=== PATIENT | female | born 2000 | race American Indian/Alaskan Native ===

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

== ENCOUNTER 2021-05-29 23:38 | Emergency (ER) | payer MEDICAID | END 2021-05-30 | disposition left against medical advice (07) | LOC: DL.ED 23:38 | DX: Z53.21 Procedure and treatment not carried out due to patient leaving prior to being seen by health care provider (principal) ==

== ENCOUNTER → 2021-05-31 | Day surgery (SDC) | payer MEDICAID ==
[~2021-05-31] MED LIST: Dexamethasone 4 MG/ML SDV IV ONE; Ferric Subsulfate Topical Soln 8 GM (8 ML) Bottle ONE; Ketorolac 30 MG/ML SDV IVPUSH ONE; Lactated Ringers 1,000 ML IV SCH; Lidocaine 0.5% with EPINEPHrine 1:200,000 50 ML MDV ONE; Midazolam 1 MG/ML 2 ML SDV IV ONE; Ondansetron 4 MG/2 ML SDV IV ONE; Ondansetron 4 MG/2 ML SDV IVPUSH PRN; Oxytocin/Normal Saline 30 UNIT/500 ML BAG ONE; Propofol 200 MG/20 ML SDV IV ONE; Sodium Chloride 0.9% 10 ML Syringe FLUSH PRN; fentaNYL 100 MCG/2 ML SDV IV ONE
[2021-05-31] MEDS: Lactated Ringers 1,000 ML IV SCH (11:00)
[2021-05-31] MEDS: Doxycycline 100 MG in Sodium Chloride 0.9% 100 ML IV ONE (11:19)
[2021-05-31] MEDS: Lidocaine 0.5% with EPINEPHrine 1:200,000 50 ML MDV INJECT ONE (12:24)
[2021-05-31] MEDS: Oxytocin/Normal Saline 30 UNIT/500 ML BAG IV SCH (12:45)
[2021-05-31] MEDS: Ferric Subsulfate Topical Soln 8 GM (8 ML) Bottle TOP ONE (12:46)
[2021-05-31 15:36] VITALS: BP 127/68; PULSE 79
--- NOTE | 2021-06-01 11:20 | OR ---
DATE: 05/31/2021 PROCEDURE PERFORMED: Suction dilatation and curettage. INDICATION FOR PROCEDURE: Missed with retained products of conception. ANESTHESIA: MAC with local. BRIEF HISTORY: 20-year-old 3, now para 1-0-2-1 with an ultrasound showing pole and sac consistent with a 10-week 3-day gestation. The patient should be almost 14 weeks today. She had some active bleeding over the weekend with mild cramping, presented to the ER, but due to the long wait decided to go home and managed well during that time. In the office, we had discussed options for expectant management or surgical management and she elected surgical for her own peace of mind to be able to move on. Also, feeling that heavy bleeding and cramping at home would not be well tolerated and she was fearful of that. Reports that she was in her usual state at this time, feeling mildly nauseous and naturally sad and depressed about the miscarriage. Otherwise, no concerns. CONSENT: Discussed the indication for removal of contents from the uterus for emotional closure and to decrease risk of infection and bleeding. Discussed risk of bleeding, however, is still present and it could require blood transfusion, risk of potential perioperative or postoperative infection, risk of injury to internal organs and adjacent structures including, but not limited to, bladder; uterus; intestines; vagina; cervix; and how those would be managed. Her questions were answered and she agreed to proceed. Appropriate consent forms were signed and in the chart. DETAILS: The patient brought to the operating room and she already had her first dose of doxycycline IV administered and she was provided with MAC anesthesia and placed in dorsal lithotomy position. Vagina was prepped and straight cath performed with return of 100 mL of clear fluid. Bimanual exam was consistent with a 10-week size uterus and slightly anteverted. Sterile speculum placed. 1 mL of 0.5% lidocaine with epinephrine was used in the anterior lip with placement of single-tooth tenaculum. Then, an additional 3 mL each was placed at the 4 and 8 o'clock positions for paracervical block. Appropriate wheal was created. Uterus was then sounded to 10.5 cm, and Hegar dilators used up to size 20 without difficulty. Attempted to pass a size 10 suction catheter and had some resistance. Therefore, size 8 suction catheter was used with standard technique, rotating and sweeping, scraping along the montaño of the uterus. Contents of the uterus aspirated without incident using ring forceps as necessary for larger tissue portions. Uterus was then cleared with sharp curette and uterine cry was felt in all 4 quadrants. Final pass of suction catheter was made and bedside ultrasound performed by myself with good image quality showing an empty uterus. Bimanual exam revealed the uterus to be back down to 6 week size and well contracted. Contents explored and consistent with retained products of conception including parts noted. ESTIMATED BLOOD LOSS: 100 mL. FINDINGS: Gross inspection of the products of conception with placental tissue, gestational sac, and parts. Pathology was not requested. Mother did want to take the contents home for burial. COMPLICATIONS: None. MEDICATIONS: The patient had IV Pitocin running when she was taken to the PACU. DISPOSITION: The patient taken to the PACU for further recovery and no family present at the immediate time postoperatively. However, a couple of hours later, family presented. I updated them as well as the patient on the success of the procedure and postoperative cares. [facility] /[id number]
== END | disposition home or self-care (01) ==
LOC: DL.SDS 10:24
PROVIDERS: ATTEND Family Medicine
DX: O02.89 Other abnormal products of conception (principal); Z01.812 Encounter for preprocedural laboratory examination; Z20.822 Contact with and (suspected) exposure to COVID-19
CPT/HCPCS: 59812; 87635; J1100; J1885; J2250; J2405; J2590; J2704; J3010; J3490; J7120; U0002

== ENCOUNTER 2021-09-18 15:08 | Emergency (ER) | payer MEDICAID ==
[2021-09-18] MEDS ORDERED: Ondansetron 4 MG Tab.DIS PO ONE (15:09)
[2021-09-18 15:39] VITALS: BP 118/74; PULSE 68
[2021-09-18 16:13] LABS: CORONAVIRUS COVID-19 NAA NEGATIVE (NEGATIVE)
[2021-09-18] MEDS ORDERED: Ondansetron 4 MG/2 ML SDV IVPUSH ONE (17:10)
[2021-09-18] MEDS ORDERED: Sodium Chloride 0.9% 1,000 ML IV ONE ×2 (17:10→17:42)
[2021-09-18 17:26] LABS: ANION GAP 17.6 mEq/L (7-13); CHLORIDE,CL 102 mmol/L (98-107); SODIUM,NA 139 mmol/L (136-145)
--- NOTE | 2021-09-18 17:46 | EDM.PDOC ---
Scribed by Mary Carmen Valenzuela 09/18/21 [id number] for Arsen Berry PA ED HPI GENERAL MEDICAL PROBLEM - General Chief Complaint: Abdominal Pain Stated Complaint: VOMITING EVERYTHING, NOT ATE IN 2 DAYS Time Seen by Provider: 09/18/21 17:06 Source of Information: Reports: Patient, RN, RN Notes Reviewed History Limitations: Reports: No Limitations - History of Present Illness INITIAL COMMENTS - FREE TEXT/NARRATIVE: Patient is a 21-year-old female who reports to ED due to vomiting x5 days. The patient reports she was seen in the [facility], but no treatments were done. T he patient reports she now also has a headache. The patient reports she has had loose bowel movements. Onset: Gradual Duration: Constant Location: Reports: Abdomen Quality: Reports: Ache Severity: Moderate Improves with: Reports: None Worsens with: Reports: None Associated Symptoms: Reports: No Other Symptoms Abdomen Pain Score (Numeric/FACES): 7 - Related Data Allergies Allergy/AdvReac Type Severity Reaction Status Date / Time No Known Allergies Allergy Verified 09/18/21 15:36 Home Meds: Home Meds Acetaminophen 500 mg PO ASDIRECTED PRN 05/28/21 [History] Albuterol [Proventil Neb Soln] 1 vial INH ASDIRECTED PRN 05/28/21 [History] Doxycycline Hyclate [Doxy 100] 100 mg IV BID #6 ml 06/01/21 [Rx] Ibuprofen 800 mg PO Q8H #30 tablet 06/01/21 [Rx] Past Medical History - Past Health History Medical/Surgical History: Denies Medical/Surgical History HEENT History: Reports: Impaired Vision, Other (See Below) Other HEENT History: WEARS CORRECTIVE LENS Cardiovascular History: Reports: None Respiratory History: Reports: None Gastrointestinal History: Reports: None Genitourinary History: Reports: STD DEPUTY ATTORNEY GENERAL History: Reports: , Spontaneous , Other (See Below) Other DEPUTY ATTORNEY GENERAL History: took a test this morning, positive, states did have a miscarriage, early on in 2017 Musculoskeletal History: Reports: Fracture Other Musculoskeletal History: HUMERAL FRACTURE Neurological History: Reports: None Psychiatric History: Reports: ADHD, Bipolar, PTSD Endocrine/Metabolic History: Reports: Obesity/BMI 30+ Hematologic History: Reports: Anemia Immunologic History: Reports: None Oncologic (Cancer) History: Reports: None Dermatologic History: Reports: None - Infectious Disease History Infectious Disease History: Reports: None - Past Surgical History Head Surgeries/Procedures: Reports: None HEENT Surgical History: Reports: Adenoidectomy, Tonsillectomy Cardiovascular Surgical History: Reports: None Respiratory Surgical History: Reports: None GI Surgical History: Reports: None Female Surgical History: Reports: None Endocrine Surgical History: Reports: None Neurological Surgical History: Reports: None Musculoskeletal Surgical History: Reports: None Oncologic Surgical History: Reports: None Dermatological Surgical History: Reports: None Social & Family History - Family History Family Medical History: No Pertinent Family History - Caffeine Use Caffeine Use: Reports: None Other Caffeine Use: COFFEE one cup - Recreational Drug Use Recreational Drug Use: No - Living Situation & Occupation Living situation: Reports: with Family Occupation: Student ED ROS GENERAL - Review of Systems Review Of Systems: Comprehensive ROS is negative, except as noted in HPI. ED EXAM, GI/ABD - Physical Exam Exam: See Below Exam Limited By: No Limitations General Appearance: Alert, WD/WN, No Apparent Distress Eyes: Bilateral: Normal Appearance Ears: Normal External Exam, Normal Canal, Hearing Grossly Normal, Normal TMs Nose: Normal Inspection, Normal Mucosa, No Blood Throat/Mouth: Normal Inspection, Normal Lips, Normal Teeth, Normal Gums, Normal Oropharynx, Normal Voice, No Airway Compromise Head: Atraumatic, Normocephalic Neck: Normal Inspection, Supple, Non-Tender, Full Range of Motion Respiratory/Chest: No Respiratory Distress, Lungs Clear, Normal Breath Sounds, No Accessory Muscle Use, Chest Non-Tender Cardiovascular: Normal Peripheral Pulses, Regular Rate, Rhythm, No Edema, No Gallop, No JVD, No Murmur, No Rub GI/Abdominal Exam: Other (diffuse tenderness) (Female) Exam: Deferred Rectal (Female) Exam: Deferred Back Exam: Normal Inspection, Full Range of Motion, NT Extremities: Normal Inspection, Normal Range of Motion, Non-Tender, Normal Capillary Refill, No Pedal Edema Neurological: Alert, Oriented, CN II-XII Intact, Normal Cognition, Normal Gait, Normal Reflexes, No Motor/Sensory Deficits Psychiatric: Normal Affect, Normal Mood Skin Exam: Warm, Dry, Intact, Normal Color, No Rash Lymphatic: No Adenopathy Course - Vital Signs Last Recorded V/S: Last Vital Signs Temp 98.3 F 09/18/21 15:37 Pulse 68 09/18/21 15:37 Resp 18 09/18/21 15:37 BP 118/74 09/18/21 15:37 Pulse Ox 98 09/18/21 15:37 - Orders/Labs/Meds Orders: Active Orders 24 hr Category Date Time Status CULTURE BLOOD [BC] Stat Lab 09/18/21 17:05 Ordered DRUG SCREEN URINE BIORAD [URCHEM] Stat Lab 09/18/21 17:05 Ordered HCG QUALITATIVE,URINE [URCHEM] Stat Lab 09/18/21 17:05 Ordered UA RFX JOSE AND CULT IF INDIC [URIN] Urgent Lab 09/18/21 17:05 Ordered Sodium Chloride 0.9% [Normal Saline] 1,000 ml Med 09/18/21 17:10 Ordered IV .BOLUS Sodium Chloride 0.9% [Normal Saline] 1,000 ml Med 09/18/21 17:42 Ordered IV .BOLUS Medication Orders Sodium Chloride (Normal Saline) 1,000 mls @ 999 mls/hr IV .BOLUS ONE Stop: 09/18/21 18:10 Last Admin: 09/18/21 17:15 Dose: 999 mls/hr Documented by: DANA Sodium Chloride (Normal Saline) 1,000 mls @ 999 mls/hr IV .BOLUS ONE Stop: 09/18/21 18:42 Labs: Laboratory Tests 09/18/21 09/18/21 09/18/21 Range/Units 15:24 17:00 17:00 WBC 9.3 (5.0-10.0) 10^3/uL RBC 5.63 H (4.2-5.4) 10^6/uL Hgb 15.8 D (12.0-16.0) g/dL Hct 46.7 (37.0-47.0) % MCV 82.9 (80-100) fL MCH 28.1 (27.0-34.0) pg MCHC 33.8 (33.0-35.0) g/dL Plt Count 359 D (150-450) 10^3/uL Neut % (Auto) 85.7 H (42.2-75.2) % Lymph % (Auto) 8.7 L (20.5-50.1) % [place] % (Auto) 5.1 (2-8) % Eos % (Auto) 0.4 L (1.0-3.0) % Baso % (Auto) 0.1 (0.0-1.0) % Sodium 139 (136-145) mmol/L Potassium 3.6 (3.5-5.1) mmol/L Chloride 102 (98-107) mmol/L Carbon Dioxide 23 (21-32) mmol/L Anion Gap 17.6 H (7-13) mEq/L BUN 10 (7-18) mg/dL Creatinine 0.93 (0.55-1.02) mg/dL Est Cr Clr Drug Dosing TNP Estimated GFR (MDRD) > 60 BUN/Creatinine Ratio 10.8 (No establ ref range) Glucose 127 H (70-99) mg/dL Lactic Acid (0.4-2.0) mmol/L Calcium 8.8 (8.5-10.1) mg/dL Total Bilirubin 0.5 (0.2-1.0) mg/dL AST 18 (15-37) U/L ALT 27 (14-59) U/L Alkaline Phosphatase 151 H (46-116) U/L Total Protein 8.2 (6.4-8.2) g/dL Albumin 3.5 (3.4-5.0) g/dL Globulin 4.7 Albumin/Globulin Ratio 0.7 Influenza Type A RNA Negative (NEGATIVE) Influenza Type B RNA Negative (NEGATIVE) SARS-CoV-2 RNA (KAYE) Negative (NEGATIVE) 09/18/21 Range/Units 17:00 WBC (5.0-10.0) 10^3/uL RBC (4.2-5.4) 10^6/uL Hgb (12.0-16.0) g/dL Hct (37.0-47.0) % MCV (80-100) fL MCH (27.0-34.0) pg MCHC (33.0-35.0) g/dL Plt Count (150-450) 10^3/uL Neut % (Auto) (42.2-75.2) % Lymph % (Auto) (20.5-50.1) % [place] % (Auto) (2-8) % Eos % (Auto) (1.0-3.0) % Baso % (Auto) (0.0-1.0) % Sodium (136-145) mmol/L Potassium (3.5-5.1) mmol/L Chloride (98-107) mmol/L Carbon Dioxide (21-32) mmol/L Anion Gap (7-13) mEq/L BUN (7-18) mg/dL Creatinine (0.55-1.02) mg/dL Est Cr Clr Drug Dosing Estimated GFR (MDRD) BUN/Creatinine Ratio (No establ ref range) Glucose (70-99) mg/dL Lactic Acid 1.1 (0.4-2.0) mmol/L Calcium (8.5-10.1) mg/dL Total Bilirubin (0.2-1.0) mg/dL AST (15-37) U/L ALT (14-59) U/L Alkaline Phosphatase (46-116) U/L Total Protein (6.4-8.2) g/dL Albumin (3.4-5.0) g/dL Globulin Albumin/Globulin Ratio Influenza Type A RNA (NEGATIVE) Influenza Type B RNA (NEGATIVE) SARS-CoV-2 RNA (KAYE) (NEGATIVE) Meds: Medications Generic Name Dose Route Start Last Admin Trade Name Freq PRN Reason Stop Dose Admin Sodium Chloride 1,000 mls @ 999 mls/hr 09/18/21 17:10 09/18/21 17:15 Normal Saline IV 09/18/21 18:10 999 mls/hr .BOLUS ONE Administration Sodium Chloride 1,000 mls @ 999 mls/hr 09/18/21 17:42 Normal Saline IV 09/18/21 18:42 .BOLUS ONE Discontinued Medications Generic Name Dose Route Start Last Admin Trade Name Freq PRN Reason Stop Dose Admin Ondansetron HCl 4 mg 09/18/21 17:10 09/18/21 17:15 Ondansetron 4 Mg/2 Ml Sdv IVPUSH 09/18/21 17:11 4 mg ONETIME ONE Administration Departure - Departure Time of Disposition: 18:30 Disposition: Home, Self-Care 01 Condition: Fair Clinical Impression: Gastroenteritis - Discharge Information *PRESCRIPTION DRUG MONITORING PROGRAM REVIEWED*: Not Applicable *COPY OF PRESCRIPTION DRUG MONITORING REPORT IN PATIENT ABDIFATAH: Not Applicable Instructions: Viral Gastroenteritis, Adult, [id number] Forms: ED Department Discharge Care Plan Goals: The patient was advised of the examination and lab results during the visit. The patient was given IV fluids and IV Zofran while in the ED. The patient was discharged with Zofran ODT (4 mg) #6 to take 1 by mouth every 4 hours and a script for Zofran (4 mg) #20 to take 1 by mouth every 6 hours as needed for nausea. The patient was encouraged to stick to a BRAT diet (bananas, rice, applesauce and toast) with small frequent sips of fluid. If the patient has any additional symptoms or concerns, the patient should either return to the emergency department or follow-up with her primary care facility. Sepsis Event Note (ED) - Evaluation Sepsis Screening Result: No Definite Risk - Focused Exam Vital Signs: Vital Signs Temp Pulse Resp BP Pulse Ox 09/18/21 15:37 98.3 F 68 18 118/74 98 - My Orders Last 24 Hours: My Active Orders 09/18/21 17:05 CULTURE BLOOD [BC] Stat DRUG SCREEN URINE BIORAD [URCHEM] Stat HCG QUALITATIVE,URINE [URCHEM] Stat UA RFX JOSE AND CULT IF INDIC [URIN] Urgent 09/18/21 17:10 Sodium Chloride 0.9% [Normal Saline] 1,000 ml IV .BOLUS 09/18/21 17:42 Sodium Chloride 0.9% [Normal Saline] 1,000 ml IV .BOLUS - Assessment/Plan Last 24 Hours: My Active Orders 09/18/21 17:05 CULTURE BLOOD [BC] Stat DRUG SCREEN URINE BIORAD [URCHEM] Stat HCG QUALITATIVE,URINE [URCHEM] Stat UA RFX JOSE AND CULT IF INDIC [URIN] Urgent 09/18/21 17:10 Sodium Chloride 0.9% [Normal Saline] 1,000 ml IV .BOLUS 09/18/21 17:42 Sodium Chloride 0.9% [Normal Saline] 1,000 ml IV .BOLUS I have read and agree with the documentation that has been completed regarding this visit. By signing this record, I attest that the documentation was completed in my physical presence and is an accurate record of the encounter.
[2021-09-18] MEDS ORDERED: Ondansetron 4 MG Tab.DIS ONE (17:50)
== END 2021-09-18 17:58 | disposition home or self-care (01) ==
LOC: DL.ED 15:08
DX: K52.9 Noninfective gastroenteritis and colitis, unspecified (principal); E66.9 Obesity, unspecified; Z68.30 Body mass index [BMI] 30.0-30.9, adult; Z20.822 Contact with and (suspected) exposure to COVID-19
CPT/HCPCS: 0240U; 36415; 80053; 83605; 85025; 87040; 96374; 99284; A9270; J2405; J7030

== ENCOUNTER 2022-06-15 00:04 | Inpatient (IN) | payer MEDICAID ==
[~2022-06-15 00:04] MED LIST changes: +Acetaminophen 325 MG Tab PO PRN; +Carboprost Tromethamine 250 MCG/1 ML Amp IM PRN; -Dexamethasone 4 MG/ML SDV IV ONE; -Ferric Subsulfate Topical Soln 8 GM (8 ML) Bottle ONE; -Ketorolac 30 MG/ML SDV IVPUSH ONE; +Lactated Ringers 1,000 ML IV ONE; +Lactated Ringers 500 ML IV SCH; -Lidocaine 0.5% with EPINEPHrine 1:200,000 50 ML MDV ONE; +Lidocaine 1% 30 ML SDV INJECT PRN; +Methylergonovine 0.2 MG/1 ML Amp IM PRN; -Midazolam 1 MG/ML 2 ML SDV IV ONE; +Misoprostol 400 MCG (4 X 100 MCG TAB) RECTAL PRN; +Misoprostol 50 MCG (1/2 of 100 MCG) Tab VAG PRN; +Naloxone 2 MG/2 ML Syringe IVPUSH PRN; -Ondansetron 4 MG/2 ML SDV IV ONE; +Oxytocin/Normal Saline 30 UNIT/500 ML BAG IV SCH; -Oxytocin/Normal Saline 30 UNIT/500 ML BAG ONE; +Promethazine 25 MG/ML SDV IM PRN; -Propofol 200 MG/20 ML SDV IV ONE; +Tranexamic Acid 1,000 MG in Sodium Chloride 0.9% 100 ML IV PRN; +ePHEDrine 50 MG/ML SDV IVPUSH PRN; -fentaNYL 100 MCG/2 ML SDV IV ONE; +fentaNYL 100 MCG/2 ML SDV IVPUSH PRN
[2022-06-15] MEDS ORDERED: Misoprostol 25 MCG (1/4 of 100 MCG) Tab VAG PRN (00:41)
[2022-06-15] MEDS ORDERED: Nalbuphine 20 MG/1 ML Amp IM PRN ×2 (06:46→06:51)
[2022-06-15] MEDS ORDERED: Benzocaine/Menthol 20%-0.5% Spray 78 GM Cannister TOP PRN (09:12)
[2022-06-15] MEDS ORDERED: Misoprostol 400 MCG (4 X 100 MCG TAB) RECTAL PRN (09:12)
[2022-06-15] MEDS ORDERED: Sodium Chloride 0.9% 10 ML Syringe FLUSH PRN (09:12)
[2022-06-15] MEDS ORDERED: Simethicone 80 MG Tab.Chew PO PRN (09:12)
[2022-06-15] MEDS ORDERED: Tranexamic Acid 1,000 MG in Sodium Chloride 0.9% 100 ML IV PRN (09:12)
[2022-06-15] MEDS ORDERED: Carboprost Tromethamine 250 MCG/1 ML Amp IM PRN (09:12)
[2022-06-15] MEDS ORDERED: Oxytocin 10 Units/1 ML SDV IM PRN (09:12)
[2022-06-15 09:40] LABS: AMPHETAMINES,URINE NEGATIVE (NEGATIVE); BARBITURATES,URINE NEGATIVE (NEGATIVE); BENZODIAZEPINE,URINE NEGATIVE (NEGATIVE); MDMA (ECSTASY), URINE NEGATIVE (NEGATIVE); METHADONE,URINE NEGATIVE (NEGATIVE); METHAMPHETAMINES,URINE NEGATIVE (NEGATIVE); OPIATES,URINE NEGATIVE (NEGATIVE); OXYCODONE,URINE NEGATIVE (NEGATIVE); PHENCYCLIDINE,URINE NEGATIVE (NEGATIVE); TCA,URINE NEGATIVE (NEGATIVE)
[2022-06-15] MEDS: Ibuprofen 800 MG Tab PO PRN ×2 (13:07→20:54)
[2022-06-15] MEDS: Docusate Sodium 100 MG Cap PO PRN (19:09)
[2022-06-15] MEDS: Acetaminophen 325 MG Tab PO PRN (19:09)
[2022-06-15] MEDS: Ferrous Sulfate 325 MG Tab PO SCH (20:54)
[2022-06-16] MEDS: Ibuprofen 800 MG Tab PO PRN (06:34)
[2022-06-16 07:24] VITALS: BP 115/68; PULSE 68
[2022-06-16] MEDS: Ferrous Sulfate 325 MG Tab PO SCH (08:59)
[2022-06-16] MEDS: Docusate Sodium 100 MG Cap PO PRN (08:59)
[2022-06-16] MEDS: Acetaminophen 325 MG Tab PO PRN (08:59)
[2022-06-16] MEDS ORDERED: Prenatal Multivitamin with Calcium/Folic Acid/Iron Tab PO SCH (09:00)
[2022-06-16] MEDS ORDERED: Measles, Mumps & Rubella Vaccine 0.5 ML SDV SUBCUT ONE (11:46)
== END 2022-06-16 12:58 | disposition home or self-care (01) | DRG 807 ==
LOC: DL.OBCHECK 00:04 → DL.OB 00:07 → OBSVTOIN 08:54 → DL.OB 08:54
PROVIDERS: ADMIT Family Medicine; ATTEND Family Medicine
PROC: 10E0XZZ Delivery of Products of Conception, External Approach (ICD-10-PCS; principal; 2022-06-15)
PROC: 3E0P7VZ Introduction of Hormone into Female Reproductive, Via Natural or Artificial Opening (ICD-10-PCS; 2022-06-15)
PROC: 3E033VJ Introduction of Other Hormone into Peripheral Vein, Percutaneous Approach (ICD-10-PCS; 2022-06-15)
PROC: 3E0234Z Introduction of Serum, Toxoid and Vaccine into Muscle, Percutaneous Approach (ICD-10-PCS; 2022-06-16)
DX: O99.214 Obesity complicating childbirth (principal); Z37.0 Single live birth; O99.324 Drug use complicating childbirth; F15.10 Other stimulant abuse, uncomplicated; F12.10 Cannabis abuse, uncomplicated; Z20.822 Contact with and (suspected) exposure to COVID-19; O99.344 Other mental disorders complicating childbirth; F41.9 Anxiety disorder, unspecified; F32.A Depression, unspecified; F90.9 Attention-deficit hyperactivity disorder, unspecified type; O99.02 Anemia complicating childbirth; D64.9 Anemia, unspecified; O71.82 Other specified trauma to perineum and vulva; Z3A.39 39 weeks gestation of pregnancy; Z23 Encounter for immunization
CPT/HCPCS: 36415; 51701; 59409; 80305-QW; 85027; 90471; 90707; A9270-GY; J2300; J2590; J7120; U0002

== ENCOUNTER 2023-08-10 07:33 | Inpatient (IN) | payer MEDICAID ==
[2023-08-10] MEDS ORDERED: Penicillin G Potassium 5 MILLUNITS in Sodium Chloride 0.9% 100 ML IV ONE (07:43)
[2023-08-10] MEDS ORDERED: Carboprost Tromethamine 250 MCG/1 ML Amp IM PRN ×2 (07:43→10:45)
[2023-08-10] MEDS ORDERED: Sodium Chloride 0.9% 10 ML Syringe FLUSH PRN ×2 (07:43→10:45)
[2023-08-10] MEDS ORDERED: Lactated Ringers 1,000 ML IV ONE (07:43)
[2023-08-10] MEDS ORDERED: Ondansetron 4 MG/2 ML SDV IVPUSH PRN (07:43)
[2023-08-10] MEDS ORDERED: Misoprostol 400 MCG (4 X 100 MCG TAB) RECTAL PRN ×2 (07:43→10:45)
[2023-08-10] MEDS ORDERED: Lidocaine 1% 30 ML SDV INJECT ONE (07:43)
[2023-08-10] MEDS ORDERED: Methylergonovine 0.2 MG/1 ML Amp IM PRN (07:43)
[2023-08-10] MEDS ORDERED: Acetaminophen 325 MG Tab PO PRN (07:43)
[2023-08-10] MEDS ORDERED: Tranexamic Acid 1,000 MG in Sodium Chloride 0.9% 100 ML IV PRN ×2 (07:43→10:45)
[2023-08-10] MEDS ORDERED: Lactated Ringers 1,000 ML IV SCH (07:45)
[2023-08-10 07:59] LABS: HEMATOCRIT 32.6 % (37.0-47.0); HEMOGLOBIN 10.3 g/dL (12.0-16.0); MEAN CORPUSCULAR HEMOGLOBIN 24.9 pg (27.0-34.0); MEAN CORPUSCULAR HGB CONC 31.6 g/dL (33.0-35.0); MEAN CORPUSCULAR VOLUME 78.7 fL (80-100); RED BLOOD CELL COUNT 4.14 10^6/uL (4.2-5.4); WHITE BLOOD CELL COUNT,WBC 8.2 10^3/uL (5.0-10.0)
[2023-08-10] MEDS ORDERED: Bupivacaine 0.25% 10 ML SDV ONE (08:08)
[2023-08-10] MEDS ORDERED: fentaNYL 100 MCG/2 ML SDV ONE (08:08)
[2023-08-10] MEDS ORDERED: ePHEDrine 50 MG/ML SDV IVPUSH PRN (08:29)
[2023-08-10] MEDS ORDERED: Phenylephrine HCl In 0.9% NaCl 1 MG/10 ML Syringe IVPUSH PRN (08:29)
[2023-08-10] MEDS ORDERED: Ropivacaine 200 MG in Premix Bag 1 BAG EPIDUR SCH (08:30)
[2023-08-10] MEDS: Oxytocin/Normal Saline 30 UNIT/500 ML BAG IV SCH ×2 (10:30→11:50)
[2023-08-10] MEDS ORDERED: Benzocaine/Menthol 20%-0.5% Spray 78 GM Cannister TOP PRN (10:45)
[2023-08-10] MEDS ORDERED: Simethicone 80 MG Tab.Chew PO PRN (10:45)
[2023-08-10] MEDS ORDERED: Oxytocin 10 Units/1 ML SDV IM PRN (10:45)
[2023-08-10] MEDS ORDERED: Penicillin G Potassium 3 MILLUNITS in Sodium Chloride 0.9% 100 ML IV SCH (12:00)
[2023-08-10] MEDS: Ibuprofen 800 MG Tab PO PRN ×2 (12:10→19:56)
[2023-08-10] MEDS: Docusate Sodium 100 MG Cap PO PRN (19:56)
[2023-08-10] MEDS: Ferrous Sulfate 325 MG Tab PO SCH ×2 (19:57→20:42)
[2023-08-10] MEDS: Acetaminophen 325 MG Tab PO PRN (19:57)
[2023-08-11] MEDS: Acetaminophen 325 MG Tab PO PRN ×3 (06:10→23:25)
[2023-08-11] MEDS: Ibuprofen 800 MG Tab PO PRN ×2 (06:10→17:30)
[2023-08-11 06:52] LABS: HEMATOCRIT 31.5 % (37.0-47.0); HEMOGLOBIN 9.9 g/dL (12.0-16.0); MEAN CORPUSCULAR HEMOGLOBIN 25.4 pg (27.0-34.0); MEAN CORPUSCULAR HGB CONC 31.4 g/dL (33.0-35.0); RED BLOOD CELL COUNT 3.89 10^6/uL (4.2-5.4); WHITE BLOOD CELL COUNT,WBC 10.5 10^3/uL (5.0-10.0)
[2023-08-11] MEDS: Docusate Sodium 100 MG Cap PO PRN ×2 (10:29→21:07)
[2023-08-11] MEDS: Ferrous Sulfate 325 MG Tab PO SCH ×2 (10:30→21:07)
[2023-08-11] MEDS: Prenatal Multivitamin with Calcium/Folic Acid/Iron Tab PO SCH (10:30)
[2023-08-12] MEDS: Acetaminophen 325 MG Tab PO PRN (06:25)
[2023-08-12] MEDS: Ibuprofen 800 MG Tab PO PRN (06:28)
[2023-08-12] MEDS: Prenatal Multivitamin with Calcium/Folic Acid/Iron Tab PO SCH (09:45)
[2023-08-12] MEDS: Ferrous Sulfate 325 MG Tab PO SCH (09:45)
[2023-08-12 12:24] VITALS: BP 126/65; PULSE 82
== END 2023-08-12 12:15 | disposition home or self-care (01) | DRG 805 ==
LOC: DL.OBCHECK 07:33 → DL.OB 08:05 → OBSVTOIN 10:50 → DL.OB 10:50
PROVIDERS: ADMIT Family Medicine; ATTEND Family Medicine
PROC: 10E0XZZ Delivery of Products of Conception, External Approach (ICD-10-PCS; principal; 2023-08-10)
PROC: 3E0R3BZ Introduction of Anesthetic Agent into Spinal Canal, Percutaneous Approach (ICD-10-PCS; 2023-08-10)
PROC: 00HU33Z Insertion of Infusion Device into Spinal Canal, Percutaneous Approach (ICD-10-PCS; 2023-08-10)
PROC: 10907ZC Drainage of Amniotic Fluid, Therapeutic from Products of Conception, Via Natural or Artificial Opening (ICD-10-PCS; 2023-08-10)
DX: O30.043 Twin pregnancy, dichorionic/diamniotic, third trimester (principal); O60.14X0 Preterm labor third trimester with preterm delivery third trimester, not applicable or unspecified; Z37.2 Twins, both liveborn; O99.824 Streptococcus B carrier state complicating childbirth; O99.214 Obesity complicating childbirth; O69.81X1 Labor and delivery complicated by cord around neck, without compression, fetus 1; O99.02 Anemia complicating childbirth; F43.10 Post-traumatic stress disorder, unspecified; O99.344 Other mental disorders complicating childbirth; F31.9 Bipolar disorder, unspecified; F90.9 Attention-deficit hyperactivity disorder, unspecified type; F43.20 Adjustment disorder, unspecified; Z3A.35 35 weeks gestation of pregnancy; Z88.1 Allergy status to other antibiotic agents; Z87.81 Personal history of (healed) traumatic fracture
CPT/HCPCS: 36415; 51702; 59409; 76815; 85027; 86850; 86900; 86901; A9270-GY; J2405; J2540; J2590; J2795; J3490; J7120

== ENCOUNTER 2023-10-28 10:38 | Emergency (ER) | payer MEDICAID ==
[2023-10-28 10:53] VITALS: BP 141/83; PULSE 98
[2023-10-28] MEDS ORDERED: Promethazine 25 MG/ML SDV IM ONE (11:06)
[2023-10-28 11:34] LABS: APPEARANCE,URINE CLOUDY (CLEAR); BILIRUBIN,URINE NEGATIVE (NEGATIVE); COLOR,URINE DARK YELLOW (YELLOW); GLUCOSE,URINE NEGATIVE (NEGATIVE); KETONES,URINE NEGATIVE (NEGATIVE); LEUKOCYTE ESTERASE,URINE SMALL (NEGATIVE); NITRITE,URINE NEGATIVE (NEGATIVE); OCCULT BLOOD,URINE NEGATIVE (NEGATIVE); PH,URINE 5.5 (5.0-9.0); PROTEIN,URINE NEGATIVE (NEGATIVE); UROBILINOGEN,URINE 0.2 mg/dL (0.2-1.0)
[2023-10-28 11:44] LABS: AMORPHOUS SEDIMENT,URINE FEW /HPF (NOT SEEN); AMPHETAMINES,URINE POSITIVE (NEGATIVE); BACTERIA,URINE MODERATE /HPF (0-FEW/HPF); BARBITURATES,URINE NEGATIVE (NEGATIVE); BENZODIAZEPINE,URINE NEGATIVE (NEGATIVE); EPITHELIAL CELLS,URINE MODERATE /HPF (NOT SEEN); MDMA (ECSTASY), URINE NEGATIVE (NEGATIVE); METHADONE,URINE NEGATIVE (NEGATIVE); METHAMPHETAMINES,URINE POSITIVE (NEGATIVE); MUCUS,URINE FEW /LPF (NOT SEEN); OPIATES,URINE NEGATIVE (NEGATIVE); OXYCODONE,URINE NEGATIVE (NEGATIVE); PHENCYCLIDINE,URINE NEGATIVE (NEGATIVE); RBC,URINE 0-5 /HPF (0-5); TCA,URINE NEGATIVE (NEGATIVE); WBC,URINE 30-40 /HPF (0-5/HPF)
== END 2023-10-28 15:31 | disposition home or self-care (01) ==
LOC: DL.ED 10:38
DX: F10.10 Alcohol abuse, uncomplicated (principal); I10 Essential (primary) hypertension; Z86.16 Personal history of COVID-19; Z88.8 Allergy status to other drugs, medicaments and biological substances
CPT/HCPCS: 80305-QW; 81001; 87086; 96372; 99284; J2550

== ENCOUNTER 2024-02-13 14:51 | Emergency (ER) | payer MEDICAID ==
[2024-02-13 15:02] VITALS: BP 102/71; PULSE 96
[2024-02-13] MEDS: Acetaminophen 500 MG Tab PO ONE (15:40)
== END 2024-02-13 15:46 | disposition home or self-care (01) ==
LOC: DL.ED 14:51
DX: M54.2 Cervicalgia (principal); M25.572 Pain in left ankle and joints of left foot; Z88.8 Allergy status to other drugs, medicaments and biological substances; Z86.16 Personal history of COVID-19; Y04.0XXA Assault by unarmed brawl or fight, initial encounter; Y93.89 Activity, other specified
CPT/HCPCS: 70450; 72125; 73600-LT; 99283; 99284; A9270-GY

== ENCOUNTER 2024-05-30 11:16 | Emergency (ER) | payer MEDICAID ==
[2024-05-30 11:41] VITALS: BP 133/87; PULSE 93
[2024-05-30 12:04] LABS: BASOPHILS PERCENT AUTO 0.2 % (0.0-1.0); HEMATOCRIT 40.3 % (37.0-47.0); HEMOGLOBIN 13.1 g/dL (12.0-16.0); LYMPHOCYTES PERCENT AUTO 19.7 % (20.5-50.1); MEAN CORPUSCULAR HEMOGLOBIN 27.2 pg (27.0-34.0); MEAN CORPUSCULAR HGB CONC 32.5 g/dL (33.0-35.0); MEAN CORPUSCULAR VOLUME 83.6 fL (80-100); MONOCYTES PERCENT AUTO 4.6 % (2-8); NEUTROPHILS PERCENT AUTO 73.5 % (42.2-75.2); PLATELET COUNT,PLT 316 10^3/uL (150-450); RED BLOOD CELL COUNT 4.82 10^6/uL (4.2-5.4); WHITE BLOOD CELL COUNT,WBC 12.3 10^3/uL (5.0-10.0)
[2024-05-30] MEDS: Sodium Chloride 0.9% 1,000 ML IV SCH (12:09)
[2024-05-30 12:27] LABS: APPEARANCE,URINE CLOUDY (CLEAR); BILIRUBIN,URINE NEGATIVE (NEGATIVE); COLOR,URINE YELLOW (YELLOW); GLUCOSE,URINE NEGATIVE (NEGATIVE); KETONES,URINE NEGATIVE (NEGATIVE); LEUKOCYTE ESTERASE,URINE SMALL (NEGATIVE); NITRITE,URINE POSITIVE (NEGATIVE); OCCULT BLOOD,URINE MODERATE (NEGATIVE); PH,URINE 5.5 (5.0-9.0); PROTEIN,URINE >=300 (NEGATIVE); UROBILINOGEN,URINE 0.2 mg/dL (0.2-1.0)
[2024-05-30 12:28] LABS: A/G RATIO 0.8; ALANINE AMINOTRANSFERASE,ALT 42 U/L (14-59); ALBUMIN 3.6 g/dL (3.4-5.0); ALKALINE PHOSPHATASE 143 U/L (46-116); ANION GAP 9.7 mEq/L (7-13); ASPARTATE AMNIOTRANSFERASE,AST 15 U/L (15-37); BILIRUBIN TOTAL 0.7 mg/dL (0.2-1.0); BLOOD UREA NITROGEN,BUN 12 mg/dL (7-18); BUN/CREATININE RATIO 13.5 (No establ ref range); CALCIUM 9.5 mg/dL (8.5-10.1); CARBON DIOXIDE,CO2 31 mmol/L (21-32); CHLORIDE,CL 102 mmol/L (98-107); CREATININE 0.89 mg/dL (0.55-1.02); EST CRCL DRUG DOSING (CG) 74.82 mL/min; GLUCOSE RANDOM 103 mg/dL (70-99); LIPASE 22 U/L (16-77); POTASSIUM,K 3.7 mmol/L (3.5-5.1); PROTEIN TOTAL,TP 7.9 g/dL (6.4-8.2); SODIUM,NA 139 mmol/L (136-145)
[2024-05-30 12:31] LABS: HCG QUALITATIVE,SERUM NEGATIVE (NEGATIVE)
[2024-05-30 12:32] LABS: ESTIMATED GFR 94 mL/min (>=60)
[2024-05-30 12:42] LABS: AMORPHOUS SEDIMENT,URINE FEW /HPF (NOT SEEN); BACTERIA,URINE MODERATE /HPF (0-FEW/HPF); EPITHELIAL CELLS,URINE RARE /HPF (NOT SEEN); MUCUS,URINE FEW /LPF (NOT SEEN); RBC,URINE 0-5 /HPF (0-5); WBC,URINE SEMI-PACKED /HPF (0-5/HPF)
[2024-05-30] MEDS: Ketorolac 30 MG/ML SDV IVPUSH ONE (12:51)
[2024-05-30] MEDS: Iopamidol 612 MG/ML 100 ML Bottle IVPUSH ONE (13:36)
== END 2024-05-30 14:34 | disposition home or self-care (01) ==
LOC: DL.ED 11:16
DX: N13.2 Hydronephrosis with renal and ureteral calculous obstruction (principal); N39.0 Urinary tract infection, site not specified; E66.9 Obesity, unspecified; Z86.16 Personal history of COVID-19; Z90.49 Acquired absence of other specified parts of digestive tract; Z87.891 Personal history of nicotine dependence; Z68.41 Body mass index [BMI] 40.0-44.9, adult; Z88.1 Allergy status to other antibiotic agents
CPT/HCPCS: 36415; 74177; 80053; 81001; 83690; 84703; 85025; 96374; 99284; 99284-25; J1885; J7030; Q9967

== ENCOUNTER 2024-06-02 14:25 | Emergency (ER) | payer MEDICAID ==
[2024-06-02 15:25] VITALS: BP 134/89; PULSE 80
[2024-06-02] MEDS: diphenhydrAMINE 50 MG/ML SDV IVPUSH ONE (15:35)
[2024-06-02] MEDS: Metoclopramide 10 MG/2 ML SDV IVPUSH ONE (15:35)
[2024-06-02] MEDS: Dexamethasone 4 MG/ML SDV IVPUSH ONE (15:35)
== END 2024-06-02 16:37 | disposition home or self-care (01) ==
LOC: DL.ED 14:25
DX: G43.909 Migraine, unspecified, not intractable, without status migrainosus (principal); E66.9 Obesity, unspecified; Z86.16 Personal history of COVID-19; Z90.49 Acquired absence of other specified parts of digestive tract; Z88.1 Allergy status to other antibiotic agents; Z68.41 Body mass index [BMI] 40.0-44.9, adult
CPT/HCPCS: 96374; 96375; 99283; J1100; J1200; J2765

== ENCOUNTER 2024-09-08 08:58 | Emergency (ER) | payer MEDICAID ==
[2024-09-08] MEDS: Acetaminophen 500 MG Tab PO ONE (09:55)
[2024-09-08] MEDS: Ibuprofen 800 MG Tab PO ONE (09:56)
[2024-09-08] MEDS: Metoclopramide 10 MG Tab PO ONE (09:56)
[2024-09-08 10:24] VITALS: BP 130/80; PULSE 100
== END 2024-09-08 10:24 | disposition home or self-care (01) ==
LOC: DL.ED 08:58
DX: G43.909 Migraine, unspecified, not intractable, without status migrainosus (principal); G44.209 Tension-type headache, unspecified, not intractable; E66.9 Obesity, unspecified; Z88.8 Allergy status to other drugs, medicaments and biological substances; Z86.16 Personal history of COVID-19; Z90.49 Acquired absence of other specified parts of digestive tract; Z68.41 Body mass index [BMI] 40.0-44.9, adult
CPT/HCPCS: 99283; A9270

== ENCOUNTER 2024-11-02 06:45 | Emergency (ER) | payer MEDICAID ==
[2024-11-02] MEDS: Diphtheria,Pertussis(Acell),Tetanus Vaccine 0.5 ML Syringe IM ONE (06:55)
[2024-11-02] MEDS: Lidocaine 1% 5 ML VIAL INJECT ONE (07:21)
[2024-11-02 07:59] VITALS: BP 121/81; PULSE 83
== END 2024-11-02 07:59 | disposition home or self-care (01) ==
LOC: DL.ED 06:45
DX: S01.01XA Laceration without foreign body of scalp, initial encounter (principal); R68.84 Jaw pain; E66.9 Obesity, unspecified; Z68.41 Body mass index [BMI] 40.0-44.9, adult; Z23 Encounter for immunization; Z88.0 Allergy status to penicillin; Y00.XXXA Assault by blunt object, initial encounter
CPT/HCPCS: 12001; 90471; 90715; 99283-25; J3490

== ENCOUNTER 2025-07-22 20:12 | Emergency (ER) | payer MEDICAID ==
[2025-07-22 20:29] VITALS: BP 129/82; PULSE 109
[2025-07-22 20:51] LABS: APPEARANCE,URINE CLOUDY (CLEAR); GLUCOSE,URINE NEGATIVE (NEGATIVE); OCCULT BLOOD,URINE NEGATIVE (NEGATIVE)
[2025-07-22 21:07] LABS: SQUAMOUS EPITHELIAL CELLS,UR MANY /HPF (NOT SEEN)
[2025-07-22] MEDS: Ketorolac 30 MG/ML SDV IM ONE (21:35)
[2025-07-22] MEDS: Orphenadrine 60 MG/2 ML Inj IM ONE (21:41)
== END 2025-07-22 22:32 | disposition home or self-care (01) ==
LOC: DL.ED 20:12
DX: M62.830 Muscle spasm of back (principal); E66.9 Obesity, unspecified; Z86.16 Personal history of COVID-19; Z79.899 Other long term (current) drug therapy; Z90.49 Acquired absence of other specified parts of digestive tract; Z88.8 Allergy status to other drugs, medicaments and biological substances; Z68.41 Body mass index [BMI] 40.0-44.9, adult
CPT/HCPCS: 72070; 72100; 81001; 81025; 96372; 99283; 99284; J1885; J2360